=== PATIENT | male | born 1995 | race Caucasian/White ===

== ENCOUNTER 2021-11-18 11:37 | Emergency (ER) | payer OTHER, SELFPAY ==
[2021-11-18 11:52] VITALS: BP 129/106; PULSE 80; RESP 16; TEMP 36.5; O2SAT 100
[2021-11-18 12:20] VITALS: BP 110/80
--- NOTE | 2021-11-18 12:22 | ED.HA ---
HPI - Headache General Chief Complaint: Headache Stated Complaint: Fall Injury/Head Time Seen by Provider: 11/18/21 12:06 Source: patient and RN notes reviewed Mode of arrival: ambulatory Limitations: no limitations History of Present Illness HPI Narrative: Patient presents today complaining of right temporal headache. Last night around midnight he fell at work from approximately 1.5 feet in the air, striking his left side of his head on a wooden pallet while wearing a hard hat. Denies loss of consciousness. Denies any additional symptoms to include nausea, vomiting, dizziness or lightheadedness, vision changes or photophobia. He currently rates his pain 3/10 and has been taking Tylenol without relief. Denies that this is his worst headache ever. States that when he typically has a headache he sleeps and when he wakes up the headache is gone and when this did not happen he came in for evaluation. MD elicited complaint: headache Related Data Home Medications Medication Instructions Recorded Confirmed No Home Medications 11/18/21 11/18/21 Allergies Allergy/AdvReac Type Severity Reaction Status Date / Time No Known Allergies Allergy Verified 11/18/21 12:09 Review of Systems Review of Systems: CONSTITUTIONAL: Denies body aches, fever, chills, or sweats. EYES: Denies visual changes, redness, or discharge. ENT: Denies rhinorrhea, congestion, sore throat, or otalgia. CARDIOVASCULAR: Denies chest pain, palpitations, or edema. RESPIRATORY: Denies cough or dyspnea. GASTROINTESTINAL: Denies abdominal pain, nausea, vomiting, or diarrhea. GENITOURINARY: Denies dysuria or hematuria. SKIN: Denies rash, itching, or wounds. MUSCULOSKELETAL: Denies back pain, joint pain, or myalgia. NEUROLOGIC: Denies numbness, tingling, or weakness.+ Headache PSYCH: Denies depression or anxiety. PMFSH Comments At time of signature, I have reviewed and agree with nursing past medical, surgical, social and family history unless otherwise noted. Please see nursing chart for further information. There is no relevant family history pertinent to the presenting complaint Exam Narrative: GENERAL: Well-appearing, well-nourished, and in no acute distress. HEAD: Normocephalic, atraumatic. EYES: EOMI. PERRL. No redness or drainage. Conjunctivae normal. ENT: Mucous membranes pink and moist. NECK: Normal AROM. Supple. No lymphadenopathy. Nontender CHEST: No respiratory distress. Clear to auscultation. HEART: Regular rate and rhythm. No murmur appreciated. Normal peripheral pulses. EXTREMITIES: Normal range of motion. No edema. Hand fiber worker equal and strong. Dorsiflexion plantarflexion equal and strong against resistance. SKIN: Warm, dry, no rash. Capillary refill normal. Normal skin turgor. NEURO: No focal deficits. Alert and oriented x3. Gait steady. PSYCH: Normal affect. No signs of depression or anxiety. Course Course Level of Care: Express Care Visit Vital Signs Vital signs: Vital Signs Temperature 97.7 F 11/18/21 11:52 Pulse Rate 80 11/18/21 11:52 Respiratory Rate 16 11/18/21 11:52 Blood Pressure 129/106 H 11/18/21 11:52 Pulse Oximetry 100 11/18/21 11:52 Temperature 97.7 F 11/18/21 11:52 Pulse Rate 80 11/18/21 11:52 Respiratory Rate 16 11/18/21 11:52 Blood Pressure 110/80 11/18/21 12:20 Pulse Oximetry 100 11/18/21 11:52 Reviewed MDM - Headache Differential Diagnosis Differential diagnosis: Likely tension headache, headache, postconcussion syndrome and other (Concussion) Critical Care Time Critical Care Time Critical Care Time: No Discharge Plan Discharge Clinical Impression: Headache Qualifiers: Headache type: unspecified Headache chronicity pattern: acute headache Intractability: not intractable Qualified Code(s): R51.9 - Headache, unspecified Patient Disposition: Home, Self-Care Condition: Stable Instructions: Acute Headache (DC) Additional Instructions: Your exam is norm
== END 2021-11-18 12:27 | disposition home or self-care (01) ==
PROVIDERS: Emergency Provider Nurse Practitioner
DX: R51.9 Headache, unspecified (principal); W17.89XA Other fall from one level to another, initial encounter; Y99.0 Civilian activity done for income or pay
CPT/HCPCS: 99213; G0463